=== PATIENT | female | born 1990 | race American Indian/Alaskan Native ===

== ENCOUNTER 2021-09-06 12:01 | Emergency (ER) | payer MEDICAID ==
[2021-09-06] MEDS ORDERED: SODIUM CHLORIDE 0.9% 1000 ML 1,000 ML IV ONE (12:11)
--- NOTE | 2021-09-06 12:15 | Emergency Department Report ---
- General Chief complaint: Weakness Stated complaint: WEAKNESS Time Seen by Provider: 09/06/21 12:05 - History of Present Illness Initial comments: Patient presents by EMS secondary to generalized weakness and altered mental status. Apparently the boyfriend called EMS because the patient was not really responsive. They found the patient to be minimally responsive. She would occasionally answer a simple question. She really would not follow commands. She acted "out of it." They try to look at her eyes and she did some fluttering movement of the eyelids. They really do not know much other history. Allegedly she has chronic pain from some sort of autoimmune disorder. She is on Lortab. They do not know how much she took. There were no other medications provided by the boyfriend. There was no report of trauma. Upon arrival here, the patient is arousable. She will not open her eyes. She will answer questions. She states that she is having generalized weakness that started last night. She reports that her chest and head hurt. That also started last night. She will not be any more specific with her descriptors. She denies vomiting or diarrhea. She denies trauma. - Related Data Allergies Allergy/AdvReac Type Severity Reaction Status Date / Time No Known Allergies Allergy Verified 09/06/21 12:20 ED Review of Systems ROS: Stated complaint: WEAKNESS Other details as noted in HPI Comment: Unobtainable due to pts medical conditions (Altered mental status) ED Past Medical Hx - Past Medical History Additional medical history: Cannot be obtained for the patient secondary to altered mental status - Surgical History Additional Surgical History: Cannot be obtained for the patient secondary to altered mental status - Family History Family history: other (Cannot be obtained for the patient secondary to altered mental status) - Social History Substance Use Type: Other (Cannot be obtained for the patient secondary to altered mental status) ED Physical Exam - General Limitations: Altered Mental Status, Other ( pulse ox noted and normal) General appearance: obese, other ( somnolent but arousable) - Head Head exam: Present: atraumatic, normocephalic, normal inspection - Eye Eye exam: Present: normal appearance, PERRL (3 mm and reactive), other ( patient continues to look down and right. This is regardless of which direction I turn her head.). Absent: scleral icterus, conjunctival injection - ENT ENT exam: Present: mucous membranes moist, normal external ear exam - Neck Neck exam: Present: normal inspection. Absent: lymphadenopathy - Respiratory Respiratory exam: Present: normal lung sounds bilaterally. Absent: respiratory distress - Cardiovascular Cardiovascular Exam: Present: regular rate, normal rhythm - GI/Abdominal GI/Abdominal exam: Present: soft. Absent: distended - Extremities Exam Extremities exam: Present: normal capillary refill. Absent: pedal edema - Back Exam Back exam: Present: normal inspection - Neurological Exam Neurological exam: Present: altered ( somnolent), reflexes normal - Psychiatric Psychiatric exam: Present: other ( somnolent) - Skin Skin exam: Present: warm, dry ED Course Vital Signs 09/06/21 12:20 Temperature 98 F Pulse Rate 68 Respiratory 16 Rate Blood Pressure 137/101 O2 Sat by Pulse 99 Oximetry - Reevaluation(s) Reevaluation #1: 09/06/21 12:15 EMS was met. Glucose have been noted. Labs were ordered. Old records reviewed. Reevaluation #2: 09/06/21 13:04 Labs are noted and normal. Patient is awake and conversant. She was discharged. ED Medical Decision Making - Lab Data Result diagrams: 09/06/21 12:26 09/06/21 12:26 Rhythm strip: Normal sinus rhythm without ectopy per monitor observe 10 seconds. - EKG Data -: EKG Interpreted by Me - EKG Data When compared to previous EKG there are: previous EKG unavailable 09/06/21 12:18 1214- EKG shows normal sinus rhythm at 70. Intervals normal including a QRS of 74 and a QT corrected of 1-32. Patient has no ST elevation to suggest STEMI. There is no ST depression suggestive of ischemia. There is T wave inversion in V1 V2. There is good R wave progression. Patient has no ectopy. There is no old EKG for comparison. - Medical Decision Making Patient presents with altered mental status and reports of fatigue. She states that this is related to her Sjogren's syndrome. She states that her autoimmune disorder, Sjogren's, causes her to be fatigued. She states that she had a flareup last night and her chest and head were hurting. Regardless, there is no evidence of EKG changes to me at this time. There is no dysrhythmia. She does not have any metabolic derangement. There is no kidney damage. She is not anemic. There is no other etiology for her to have any type of fatigue or weakness. There is no focal weakness suggestive of stroke. She was treated symptomatically and referred to her PCP for recheck. Critical Care Time: No Critical care attestation.: If time is entered above; I have spent that time in minutes in the direct care of this critically ill patient, excluding procedure time. ED Disposition Clinical Impression: Somnolence, Generalized weakness Disposition: 01 HOME / SELF CARE / HOMELESS Is pt being admited?: No Condition: Stable Instructions: Fatigue Additional Instructions: Continue home medication. Drink plenty water. Return for problems. Follow- up with your regular doctor for recheck. Follow-up with your surveying technician in addition.
[2021-09-06 12:26] VITALS: BP 137/101
[2021-09-06 12:41] LABS: Hemoglobin 12.2 gm/dl (10.1-14.3); Mean Corpuscular HGB Conc 32 % (30-34); Mean Corpuscular Volume 87 fl (79-97); Platelet Count 294 K/mm3 (140-440); Red Blood Count 4.35 M/mm3 (3.65-5.03); Red Cell Distribution Width 13.6 % (13.2-15.2)
[2021-09-06 12:58] LABS: Blood Urea Nitrogen 7 mg/dL (7-17); Calcium 8.8 mg/dL (8.4-10.2); Hemolysis Index 8
[2021-09-06 13:11] LABS: BUN/Creatinine Ratio 12
--- NOTE | 2021-09-07 09:40 | Electrocardiograph Report ---
[facility] Test Date: 2021-09-06 Test Time: 12:14:05 Pat Name: JAYA ALEX Department: Room: Gender: F Birth Attendant: KETAN : 1990 Requested By: EVA MOJICA Order Number: [id number] Reading MD: Silver Mcdonnell Measurements Intervals [place] Rate: 70 P: 62 VT: 164 QRS: 48 QRSD: 74 T: 45 QT: 399 QTc: 432 Interpretive Statements Sinus rhythm Probable left atrial enlargement nonspecific st-t No previous ECG available for comparison Electronically Signed On 09-07-2021 9:40:02 EST by Silver Mcdonnell
== END 2021-09-06 13:32 | disposition home or self-care (01) ==
LOC: ED 12:01
DX: R53.1 Weakness (principal); R40.0 Somnolence
CPT/HCPCS: 36415; 80048; 84703; 85027; 93005; 96360; 99284